=== PATIENT | male | born 1950 ===

== ENCOUNTER 2019-01-01 08:27 | Outpatient (CLI) | payer OTHER | END 2019-01-01 08:29 | disposition home or self-care (01) | LOC: RX STUDY 08:27 | DX: R13.19 Other dysphagia (principal) ==

== ENCOUNTER 2020-04-24 07:42 | Outpatient (CLI) | payer OTHER | END 2020-04-24 07:53 | disposition home or self-care (01) | LOC: RX STUDY 07:42 | PROVIDERS: ATTEND Internal Medicine Gastroenterology | DX: R10.13 Epigastric pain (principal) ==